=== PATIENT | female | born 1960 | race Caucasian/White ===

== ENCOUNTER 2022-04-08 11:31 | Outpatient (CLI) | payer BC, SELFPAY ==
[2022-04-08 21:34] LABS: Free T4 Free Thyroxine* 0.97 ng/dL (0.70-1.85)
[2022-04-08 21:48] LABS: Thyroid Stimulating Hormone* 0.902 uIU/mL (0.270-4.20)
[2022-04-10 15:07] LABS: Free T3 3.1 pg/mL (2.5-4.3)
[2022-04-10 15:16] LABS: TSH Receptor Antibody < 0.80 IU/L (<=1.75)
== END 2022-04-08 11:32 | disposition home or self-care (01) ==
PROVIDERS: PCP Physician Assistant Medical; Visit Provider Physician Assistant Medical
DX: R53.83 Other fatigue (principal); I10 Essential (primary) hypertension; E83.52 Hypercalcemia; K21.9 Gastro-esophageal reflux disease without esophagitis
CPT/HCPCS: 83520; 84439; 84443; 84481

== ENCOUNTER 2022-06-01 19:00 | Outpatient (CLI) | payer BC, SELFPAY ==
--- NOTE | 2022-06-16 13:07 | W.PM.SLEEP ---
Sleep Study Details Details Interpreting Provider: Marky Enciso MD Date of Sleep Study: 06/01/22 Sleep Study Details: STUDY TYPE:? Home ? BMI:? 26.6 ORDERING PROVIDER:? Sosa INDICATION:? Concerns about sleep apnea ? SLEEP SUMMARY:? 559 monitored minutes RESPIRATORY SUMMARY:? AHI is 5.6, supine AHI 8.8, left lateral HI 3.3, right lateral AHI 4.0 Low oxygen 87 0.5% of study oxygen less than 90% Snoring% 5 PERIODIC LIMB MOVEMENTS OF SLEEP:? Not recorded CARDIAC:? 56-96, mean 70 IMPRESSION:? Mild obstructive sleep apnea with supine position dependency RECOMMENDATION: Treatment options consist of positional therapy with avoidance of supine sleep, AutoSet CPAP at 4-17 versus a dental appliance
== END 2022-06-01 19:01 | disposition home or self-care (01) ==
LOC: SLEEP 06-15 12:35
PROVIDERS: PCP Physician Assistant Medical; Visit Provider Physician Assistant Medical
DX: G47.33 Obstructive sleep apnea (adult) (pediatric) (principal)
CPT/HCPCS: 95806

== ENCOUNTER 2024-06-09 17:34 | Outpatient (REF) | payer OTHER, SELFPAY ==
--- OUTSIDE RECORDS SUMMARY | 2024-06-09 17:39 | XMS_ITS | Clinical Summary ---
Author Organization [facility] Address [address] [place] [address] Care Team Providers Care Station Cleaning Porter Name Role Phone Unassigned, Provider Primary Care Provider Unava ilable Source Comments You are receiving this document as you are listed as the primary care provider,follow-up provider, or the patient has been referred to you for consultation.This is in compliance with the Medicare and[facility] EHR Incentive [facility],which states Providers who transition their patient to another setting of careor provider of care or refers their patient to another provider of care shouldprovide summary care record for each transition of care or referral. [employer] [employer] Allergies Active Allergy Reactions Criticality Noted Date Comments Codeine Nausea,Nausea And Vomiting High 9 Medications Medication Sig Dispensed Refills Start Date End Date Status clonazePAM (KLONOPIN) 0.5 MG tablet Take by mouth. Take 1/2 to 1 tablet by mouth two to three times daily. As needed 09/04/2021 Active metFORMIN (GLUCOPHAGE) 500 MG tablet Take 500 mg by mouth two times a day. 11/29/2021 Active metoprolol succinate (TOPROL XL) 25 MG 24 hour release tablet Take 1 Tablet by mouth daily. 10/09/2021 Active ofloxacin (FLOXIN) 0.3 % ear drop solution Place 3 Drops in ear(s) two times a day. 10/08/2021 Active omeprazole (PRILOSEC) 40 MG capsule Take 40 mg by mouth daily. 09/05/2021 Active prednisoLONE acetate (PRED FORTE) 1 % eye drop suspension 3 Drops two times a day. 10/08/2021 Active sertraline (ZOLOFT) 50 MG tablet Take 50 mg by mouth. 09/12/2021 Active spironolactone (ALDACTONE) 100 MG tablet Take 100 mg by mouth daily. 11/28/2021 Active triamcinolone acetonide (KENALOG) 0.1 % cream Apply topically. 09/03/2021 Active Social History Tobacco Use Types Packs/Day Years Used Date Smoking Tobacco: Never Assessed Sex and Gender Information Value Date Recorded Sex Assigned at Not on file Gender Identity Not on file Sexual Orientation Not on file Last Filed Vital Signs Vital Sign Reading Time Taken Comments Blood Pressure 150/83 12/15/2021 8:48 AM CDT Pulse 91 12/15/2021 8:48 AM CDT Temperature - - Respiratory Rate 16 12/15/2021 8:48 AM CDT Oxygen Saturation 98% 12/15/2021 8:48 AM CDT Inhaled Oxygen Concentration - - Weight - - Height - - Body Mass Index - - Plan of Treatment Health Maintenance Due Date Last Done Comments Colon Cancer Screening Plan Due 1960 Hep C Screening (Preventive Services) 1960 HIV Screening (Preventive Services) 1976 Adult Preventive Visit 1978 Cervical Cancer Screening Due 09/30/2002 09/29/2002 Cholesterol 09/29/2007 09/29/2002 Zoster/Shingles (1 of 2) 2010 Mammogram 09/29/2012 09/29/2011 COVID-19 Vaccine ( season) 2024 01/17/2021, 12/16/2020 Influenza (#1) 2024 08/21/2019, 04/24, 07/24/2005, Additional history exists DTaP/Tdap/Td (4 - Tdap) 01/22/2025 01/23/20 15, 10/20/2006, 10/20/2006 RSV (1 - 1-dose 75+ series) 11/14/2035 HepA Aged Out No longer eligi ble based on patient's age to complete this topic HepB Aged Out No longer eligi ble based on patient's age to complete this topic Hib Aged Out No longer eligi ble based on patient's age to complete this topic IPV (Polio) Aged Out No longer eligi ble based on patient's age to complete this topic Infant RSV Aged Out No longer eligi ble based on patient's age to complete this topic MCV4 Aged Out No longer eligi ble based on patient's age to complete this topic Pneumococcal Aged Out No longer eligi ble based on patient's age to complete this topic Procedures Procedure Name Priority Date/Time Associated Diagnosis Comments ANATOMICAL PATH-C Routine 09/29/2002 2:1 2 PM ENTERTAINMENT USHER LIPID PANEL & DIRECT LDL (IF NEEDED) Routine 09/29/2002 10:03 AM ENTERTAINMENT USHER from Last 3 Months or Most Recently Relevant to Health Maintenance Results * Anatomical Path-C (09/29/2002 2:12 PM ENTERTAINMENT USHER) PAP Smear SEE TEXT No normal range HP CONVERSION Comment: Patient: MIRTA BURROUGHS ? CERVICAL CYTOLOGY REPORT Pathology # ??[id number] ?Date Obtained: ? Date Received: LMP: CLINICAL HIST CONVENTIONAL PAP SMEAR-CERVIX SPECIMEN ADEQUACY: ?? Satisfactory. ENDOCERVICAL CELLS: ??Present. CYTOLOGIC IMPRESSION: Negative for intraepithelial lesion or malignancy. Verified 10/23/02 by: ??TSC ?(electronic signature) 09/29/2002 2:12 PM ENTERTAINMENT USHER Julia Blunt MD LAB_1 HP CONVERSION * Lipid Panel and Direct LDL(If Needed) (09/29/2002 10:03 AM ENTERTAINMENT USHER) Cholesterol/HDL Ratio Screen 2.6 No normal range HP CONVERSION Cholesterol 158 125 - 199 mg/dL HP CONVERSION HDL Cholesterol 60 40 - 60 mg/dL HP CONVERSION Triglycerides 86 0 - 199 mg/dL HP CONVERSION LDL Calculated 81 66 - 129 mg/dL HP CONVERSION Comment: 09/29/2002 10:0 3 AM ENTERTAINMENT USHER Julia Blunt MD LAB_1 HP CONVERSION from Last 3 Months or Most Recently Relevant to Health Maintenance Care Teams Station Cleaning Porter Relationship Specialty Start Date End Date Unassigned, Provider [address] [place] [address] PCP - General 07/31/00
--- OUTSIDE RECORDS SUMMARY | 2024-06-09 17:39 | XMS_ITS | Referral Summary ---
Author Organization [facility] Address [address] [place] [id number] Care Team Providers Care Consulting Actuary Name Role Phone [facility]- Primary Care Provider Corey aKng MD Unavailable [phone] Allergies Active Allergy Reactions Criticality Noted Date Comments Adhesive Tape Rash Low 11/24/2022 Codeine Nausea and Vomiting 08/26/2014 Mold Rash Low 01/13/2024 Medications Medication Sig Dispensed Refills Start Date End Date Status omeprazole (PRILOSEC) [address] capsule TAKE 1 CAPSULE BY MOUTH EVERY DAY BEFORE A MEAL 11/21/2020 Active ciprofloxacin-dexam ethasone (CIPRODEX) 0.3-0.1 % otic suspension as needed 05/28/2020 Active ofloxacin (OCUFLOX) 0.3 % ophthalmic solution 11/11/2020 Active prednisoLONE acetate (PRED FORTE) 1 % ophthalmic suspension 11/11/2020 Active triamcinolone (KENALOG) 0.1 % external cream 11/21/2020 Active amLODIPine (NORVASC) 5 MG tablet Take 5 mg by mouth daily for blood pressure Active metoprolol succinate ER (TOPROL XL) 25 MG 24 hr tablet Take 12.5 mg by mouth daily Active olmesartan (BENICAR) 20 MG tablet Take 20 mg by mouth daily 07/21/2023 Active FINASTERIDE PO Take 2.5 mg by mouth daily Active MAGNESIUM PO Active clonazePAM (KLONOPIN) 0.5 MG tablet Take 0.5 mg by mouth 2 times daily as needed for anxiety Active GARLIC PO Active ESTROGENS CONJUGATED PO Active UNABLE TO FIND Testosterone pellet A ctive Active Problems Problem Noted Date Diagnosed Date Gastroesophageal reflux disease without esophagi tis 12/08/2023 Mixed hyperlipidemia 03/14/2021 SVT (supraventricular tachycardia) 03/14/2021 Multiple renal calculi 10/25/2018 Immunizations Name Administration Dates Next Due TDAP Vaccine (Adacel) 01/22/2015,10/20/2006 Social History Tobacco Use Types Packs/Day Years Used Date Smoking Tobacco: Never Smokeless Tobacco: Never Tobacco Cessation:Counseling Given: Not Answered Alcohol Use Standard Drinks/Week Comments Yes 0 (1 standard drink = 0.6 oz pur e alcohol) occ Adolescent Education Answer Date Record ed Getting School Help Needed Not on file 05/14 Sex and Gender Information Value Date Recorded Sex Assigned at Not on file Gender Identity Not on file Sexual Orientation Not on file Last Filed Vital Signs Vital Sign Reading Time Taken Comments Blood Pressure 94/64 01/26/2024 2:58 PM CDT Pulse 56 01/26/2024 2:58 PM CDT Temperature 36.2 ??C (97.2 ??F) 01/26/2024 2:00 PM CD T Respiratory Rate 16 01/26/2024 2:58 PM CDT Oxygen Saturation 92% 01/26/2024 2:58 PM CDT Inhaled Oxygen Concentration - - Weight 73.5 kg (162 lb 1.6 oz) 01/26/2024 9:37 A M CDT Height 165.1 cm (5' 5) 01/26/2024 9:37 AM CDT Body Mass Index 26.97 01/26/2024 9:37 AM CDT Plan of Treatment Not on file Procedures Procedure Name Priority Date/Time Associated Diagnosis Comments COMPREHENSIVE METABOLIC PANEL STAT 12/08/2023 4:42 AM CDT COLONOSCOPY - HIM SCAN 12:00 AM CDT MA SCREENING BILATERAL W/ GABINO Routine 01/01/2016 2:32 PM CDT Visit for screening mammogram from Last 3 Months or Most Recently Relevant to Health Maintenance Results * (ABNORMAL) Comprehensive metabolic panel (12/08/2023 4:42 AM CDT) Sodium 141 135 - 145 mmol/L 12/08/2023 5:08 AM CDT [facility] Comment:Reference intervals for this test were updated on 05/18/2023 to more accurately reflect our healthy population. There may be differences in the flagging of prior results with similar values performed with this method. Interpretation of those prior results can be made in the context of the updated reference intervals. Potassium 3.9 3.4 - 5.3 mmol/L 12/08/2023 5:08 AM CDT [facility] Carbon Dioxide (CO2) 25 22 - 29 mmol/L 12/08/2023 5:08 AM CDT [facility] Anion Gap 15 7 - 15 mmol/L 12/08/2023 5:08 AM CDT [facility] Urea Nitrogen 13.4 8.0 - 23.0 mg/dL 12/08/2023 5:08 AM CDT [facility] Creatinine 0.83 0.51 - 0.95 mg/dL 12/08/2023 5:08 AM CDT [facility] GFR Estimate 79 >60 mL/min/1. 73m2 12/08/2023 5:08 AM CDT [facility] Calcium 10.3(H) 8.8 - 10.2 mg/dL 12/08/2023 5:08 AM CDT [facility] Chloride 101 98 - 107 mmol/L 12/08/2023 5:08 AM CDT [facility] Glucose 130(H) 70 - 99 mg/dL 12/08/2023 5:08 AM CDT [facility] Alkaline Phosphatase 118 40 - 150 U/L 12/08/2023 5:08 AM CDT [facility] Comment:Reference intervals for this test were updated on 07/06/2023 to more accurately reflect our healthy population. There may be differences in the flagging of prior results with similar values performed with this method. Interpretation of those prior results can be made in the context of the updated reference intervals. AST 26 0 - 45 U/L 12/08/2023 5:08 AM CDT [facility] Comment:Reference intervals for this test were updated on 02/01/2023 to more accurately reflect our healthy population. There may be differences in the flagging of prior results with similar values performed with this method. Interpretation of those prior results can be made in the context of the updated reference intervals. ALT 27 0 - 50 U/L 12/08/2023 5:08 AM CDT [facility] Comment:Reference intervals for this test were updated on 02/01/2023 to more accurately reflect our healthy population. There may be differences in the flagging of prior results with similar values performed with this method. Interpretation of those prior results can be made in the context of the updated reference intervals. Protein Total 8.5(H) 6.4 - 8.3 g/dL 12/08/2023 5:08 AM CDT [facility] Albumin 5.1 3.5 - 5.2 g/dL 12/08/2023 5:08 AM CDT [facility] Bilirubin Total 0.2 <=1.2 mg/dL 12/08/2023 5:08 AM CDT [facility] Blood VENOUS LINE / Unknown Venipuncture / Unknown 12/08/2023 4:42 AM CDT 12/08/2023 4:45 AM CDT Raeann Ramirez DO LAB - BLOOD [facility] Organization Address City/State/ZIP Co de Phone Number LABORATORY [facility] [address] Lab (1st floor, no room number) [place] [address] * Colonoscopy - HIM Scan (11/24/2022 12:00 AM CDT) 11/24/2022 Provider Outside PROCEDURES * MA Screen Bilateral w/Gabino (01/01/2016 2:32 PM CDT) Anatomical Region Laterality Modality Breast Bilateral Mammography Impressions 01/01/2016 2:43 PM CDT IMPRESSION: BI-RADS CATEGORY: 1 - ??NEGATIVE. RECOMMENDED FOLLOW-UP: Annual Mammography Exam results letter mailed to patient. VANESA MATA MD Narrative 01/01/2016 2:43 PM CDT SCREENING MAMMOGRAM, BILATERAL, DIGITAL w/CAD w/TOMOSYNTHESIS - 01/01/2016 2:32 PM. BREAST SYMPTOMS: Patient states that she has an occasional twinge in the left breast. Patient refused diagnostic mammography. COMPARISON: ??12/20/2013, 10/02/2011. BREAST DENSITY: Heterogeneously dense. COMMENTS: No findings of suspicion for malignancy. ?? Small stable appearing cluster of microcalcifications in the anterior outer right breast. Annual screening mammography will be necessary to confirm stability. There is a biopsy marker in the left breast. Procedure Note Vanesa Mata MD - 01/01/2016 SCREENING MAMMOGRAM, BILATERAL, DIGITAL w/CAD w/TOMOSYNTHESIS - 01/01/2016 2:32 PM. BREAST SYMPTOMS: Patient states that she has an occasional twinge in the left breast. Patient refused diagnostic mammography. COMPARISON: 12/20/2013, 10/02/2011. BREAST DENSITY: Heterogeneously dense. COMMENTS: No findings of suspicion for malignancy. Small stable appearing cluster of microcalcifications in the anterior outer right breast. Annual screening mammography will be necessary to confirm stability. There is a biopsy marker in the left breast. IMPRESSION: BI-RADS CATEGORY: 1 - NEGATIVE. RECOMMENDED FOLLOW-UP: Annual Mammography Exam results letter mailed to patient. VANESA MATA MD Zhanna Paulino MD IMG MAMMOGRAPHY ORDERABLES from Last 3 Months or Most Recently Relevant to Health Maintenance Care Teams Consulting Actuary Relationship Specialty Start Date End Date [facility] [address] [place] [address] PCP - General 12/18/20 Corey Kang MD [address] [place] [id number] [place] [id number] Assigned Surgical Provider 01/13/24
--- OUTSIDE RECORDS SUMMARY | 2024-06-09 17:39 | XMS_ITS | Clinical Summary ---
Author Organization [facility] Address [address] [place] [address] Care Team Providers Care Metal Polisher Name Role Phone [facility]- Primary Care Provider Corey Kang MD Unavailable [phone] Allergies Active Allergy Reactions Criticality Noted Date [...] 01/26/2024 9:37 AM CDT Plan of Treatment Health Maintenance Due Date Last Done Comments ADVANCE CARE PLANNING 1960 ANNUAL REVIEW OF HM ORDERS 1960 CT COLONOGRAPHY 1960 FIT 1960 FLEX SIG 1960 LIPID 1960 sDNA (Cologuard) 1960 Pneumococcal Vaccine: Pediatrics (0 to 5 Years) and At-Risk Patients (6 to 64 Years) (1 of 2 - PCV) 1966 HIV SCREENING 11/14/1975 HEPATITIS C SCREENING 1978 ZOSTER IMMUNIZATION (1 of 2) 11/14/1979 RSV VACCINE (1 - Risk 60-74 years 1-dose series) 2020 COVID-19 Vaccine (3 - Moderna risk series) 02/14/2021 01/17/2021, 12/16/2020 PHQ-2 (once per calendar year) 2023 PAP 03/03/2024 03/03/2021, 03/03/2021 MAMMO SCREENING 04/06/2024 04/06/2022, 03/23, 02/12/2021, Additional history exists INFLUENZA VACCINE (#1) 2024 08/21/2019 YEARLY PREVENTIVE VISIT 12/12/2024 12/13/2023, 03/03 DTAP/TDAP/TD IMMUNIZATION (3 - Td or Tdap) 01/22/2025 01/22/2015, 10/20/2006, 10/20/2006 GLUCOSE 12/07/2026 12/08/2023, 02/20, 01/19/2021, Additional history exists COLONOSCOPY 11/25/2027 11/24/2022, 11/24/2022 COLORECTAL CANCER SCREENING 11/25/2027 HPV IMMUNIZATION Aged Out No longer e ligible based on patient's age to complete this topic MENINGITIS IMMUNIZATION Aged Out No l onger eligible based on patient's age to complete this topic RSV MONOCLONAL ANTIBODY Aged Out No l onger eligible based on patient's age to complete this [...] - 145 mmol/L 12/08/2023 5:08 AM CDT LABORATORY Comment:Reference intervals for this test were updated on 05/18/2023 to more accurately reflect our healthy population. There may be differences in the flagging of prior results with similar values performed with this method. Interpretation of those prior results can be made in the context of the updated reference intervals. Potassium 3.9 3.4 - 5.3 mmol/L 12/08/2023 5:08 AM CDT LABORATORY Carbon Dioxide (CO2) 25 22 - 29 mmol/L 12/08/2023 5:08 AM CDT LABORATORY Anion Gap 15 7 - 15 mmol/L 12/08/2023 5:08 AM CDT LABORATORY Urea Nitrogen 13.4 8.0 - 23.0 mg/dL 12/08/2023 5:08 AM CDT LABORATORY Creatinine 0.83 0.51 - 0.95 mg/dL 12/08/2023 5:08 AM CDT LABORATORY GFR Estimate 79 >60 mL/min/1. 73m2 12/08/2023 5:08 AM CDT LABORATORY Calcium 10.3(H) 8.8 - 10.2 mg/dL 12/08/2023 5:08 AM CDT LABORATORY Chloride 101 98 - 107 mmol/L 12/08/2023 5:08 AM CDT LABORATORY Glucose 130(H) 70 - 99 mg/dL 12/08/2023 5:08 AM CDT LABORATORY Alkaline Phosphatase 118 40 - 150 U/L 12/08/2023 5:08 AM CDT LABORATORY Comment:Reference intervals for this test were updated on 07/06/2023 to more accurately reflect our healthy population. There may be differences in the flagging of prior results with similar values performed with this method. Interpretation of those prior results can be made in the context of the updated reference intervals. AST 26 0 - 45 U/L 12/08/2023 5:08 AM CDT LABORATORY Comment:Reference intervals for this test were updated on 02/01/2023 to more accurately reflect our healthy population. There may be differences in the flagging of prior results with similar values performed with this method. Interpretation of those prior results can be made in the context of the updated reference intervals. ALT 27 0 - 50 U/L 12/08/2023 5:08 AM CDT LABORATORY Comment:Reference intervals for this test were [...] Ramirez DO LAB - BLOOD [facility] LABORAT[facility] [address] Lab (1st floor, no room number) [place] [address] * Colonoscopy - HIM [...] Recently Relevant to Health Maintenance Care Teams Metal Polisher Relationship Specialty Start Date End Date [facility]- [address] [place] [address] PCP - General 12/18/20 Corey Kang MD [id number] [place] [id number] Assigned Surgical Provider 01/13/24
--- OUTSIDE RECORDS SUMMARY | 2024-06-09 17:39 | XMS_ITS | Continuity of Care Document ---
Author Organization [facility] Address [address] [address] [place] [address] Phone Care Team Providers Care Box Hinge And Lock Attacher Name Role Phone Kyler Cruz MD, Teodoro Unavailable Unavailabl e Allergies, Adverse Reactions, Alerts Substance Reaction Status Criticality adhesive tape Nausea/Vomiting Active No Informat ion codeine Nausea Active No Information Medications Medication Instructions Dosage Effective Dates (start - stop) Status Comments amlodipine 5 mg tablet take 1 tablet by oral route every day 5 MG - Active lisinopril 10 mg tablet take 1 tablet by oral route every day 10 MG - Active METOPROLOL SUCCINATE (unknown strength) take 1 tablet by oral route every day Not Available - Active FINASTERIDE (unknown strength) take 1 tablet by oral route every day Not Available - Active omeprazole 40 mg capsule,delayed release take 1 capsule by ORAL route every day before a meal 40 MG - Active Procedures Procedure Date Colonoscopy Flex; W/remov Les- 23 Level Iv-surg Path Gross/micro 23 Dilat Esoph-sound/bougie-1/mx 9 Ugi Endo; Dx W/wo Collec Specm 19 Offic/outpt E&m Estab Mod-hi 2 19 Colonoscopy Flex; W/remov Les- 17 Level Iv-surg Path Gross/micro 17 Offic/outpt E&m Estab Mod-hi 2 17 Ugi Endo; W/bx 1/mx Ugi Endo; W/balloon Dilat Esop 17 Level Iv-surg Path Gross/micro 17 Hemorrhoid Banding Hemorrhoidectomy By Simpl Lig 4 Hemorrhoidectomy By Simpl Lig 4 Colonoscopy Flex; W/bx 1/mx Level Iv-surg Path Gross/micro 12 Advance Directives Directive Yes / No Effective Date File Name No Information Encounters Encounter Description Practice Location Reason(s) For Visit Diagnoses Date Provider Providers Copied on Encounter [facility], [address] [address], [place], [place], [id number], [place] tel:[phone] [facility] No Information 4 Kyler Valerio. [address] [facility], [facility] [address], [place], [place], [address] , [place]. tel:[phone] [facility], [address] [address], [place], [id number], [place] tel:[phone] [facility] GI Symptoms or Concerns (chief complaint) Colorectal polyp detected on colonoscopyFamily history of colon cancerEncounter for screening for malignant neoplasm of colonBenign neoplasm of sigmoid colonPersonal history of colonic polypsFamily history of malignant neoplasm of digestive organs 0 3 Allen Pritchett. [address] [facility], [facility] [address], [place], [place], [id number] , [place]. tel:[phone] Saravanan Funez MD. tel:[phone] erring Provider: Referral Self, USE FOR SELF REFERRALS. [facility], [address] [address], [place], [id number], [place] tel:[phone] [facility] No Information 3 Kyler Valerio. [address] [facility], [address], [place], [address] , [place]. tel:[phone] [facility], [address] [address], [place], [address], [place] tel:[phone] [facility] No Information 0 1 Derek Bennett. [address] [facility], [address], [place], [id number] , [place]. tel: [phone] [facility], [address] [address], [place], [id number], [place] tel:[phone] [facility] Diaphragmatic hernia without obstruction or gangreneGastro-es ophageal reflux disease without esophagitisSchatz ki's ring of distal esophagusEsophage al obstructionDiaphr agmatic hernia without obstruction or gangreneGastro-es ophageal reflux disease without esophagitis 9 Deerk Bennett. [address] [facility], [address], [place], [id number] , [place]. tel: [phone] Saravanan Funez MD. [phone] erring Provider: Referral Self, USE FOR SELF REFERRALS. Offic/outpt E&m Estab Mod-hi 2 [facility], [address] [address], [place], [id number], [place] tel:[phone] [facility] GI Symptoms or Concerns (chief complaint) HH (hiatus hernia)Gastroesop hageal reflux disease without esophagitisEsopha geal dysphagia 9 Derek Bennett. [address] [facility], [address], [place], [id number] , [place]. tel: [phone] Saravanan Funez MD. [phone] erring Provider: Referral Self, USE FOR SELF REFERRALS. [facility], [address] [address], [place], [id number], [place] tel:[phone] [facility] No Information 9 Mackenzie James. [address] [facility], [address], [place], [address] , [place]. tel: [phone] [facility], [address] [address], [place], [id number], [place] tel:[phone] [facility] Colorectal polypsInternal hemorrhoidsEncoun ter for screening for malignant neoplasm of colonBenign neoplasm of transverse colonPersonal history of colonic polypsOther hemorrhoids 7 Marcin Sifuentes. [address] [facility], [address], [facility] [place], [id number] , [place]. tel:[phone] Referring Provider: Zhanna Paulino [place] R, [address] [facility], [place], [address]. tel:[phone] Offic/outpt E&m Estab Mod-hi 2 [facility], [address] [address], [place] [facility], [address], [place] tel:[phone] [facility] GI Symptoms or Concerns (chief complaint) HeartburnDietary counseling and surveillanceEleva rita blood-pressure reading, w/o diagnosis of htnHistory of adenomatous polyp of colon 7 Trisha Amezcua. [address] [facility], [facility] [address], [place], [place], [address] , [place]. tel:[phone] Saravanan Funez MD. tel:[phone] erring Provider: Zh[place] R, [address] [facility], [place], [address]. tel:[phone] [facility], [address] [address], [place], [address], [place] tel:[phone] [facility] Hiatal herniaDysphagia, unspecifiedEsopha geal obstructionDiaphr agmatic hernia without obstruction or gangreneEsophagea l obstruction 7 Trisha Amezcua. [address] [facility], [address], [facility] [place], [address] , [place]. [phone] Referring Provider: Zhanna Paulino [place] R, [address] [facility], [place], [address]. tel:[phone] [facility], [address] [address], [place], [id number], [place] tel:[phone] [facility] GI Symptoms or Concerns (chief complaint) Internal Hemorrhoids 0 4 Porfirio Patel. [address] [facility], [facility] [address], [place], [address] , [place]. tel: [phone] Saravanan Funez MD. tel: [phone] erring Provider: [place], [address] [place], [address]. tel:[phone] [facility], [address] [address], [place], [id number], [place] tel:[phone] [facility] Internal Hemorrhoids 4 Porfirio Patel. [address] [facility], [facility] [address], [place], [place], [address] , [place]. tel: [phone] Saravanan Funez MD. tel: [phone] erring Provider: Zhanna [place]ino [place] R, [address] [place], [address]. tel:[phone] [facility], [address] [address], [place], [id number], [place] tel:[phone] [facility] HemorrhoidsIntern al Hemorrhoids 4 Porfirio Patel. [address] [facility], [facility] [address], [place], [id number] , [place]. tel: [phone] Saravanan Funez MD. tel: [phone] erring Provider: [place] R, [address] [place], [address]. tel:[phone] [facility], [address] [address], [place], [address], [place] tel:[phone] [facility] Polyp-intes/rect/ stom-unc BehColon Cancer ScreeningBenign Neoplasm ColonHemorrhoids NosConstipation UnspecifiedColon Cancer ScreeningConstipa tion UnspecifiedHemorr hoids NosBenign Neoplasm Colon Fe- Ben Ndiaye. [address] [facility], [facility] [address], [place], [place], [address] , [place]. tel:[phone] Family History Family Member Type Diagnosis Age At Onset Mother Problem (finding) malignant neoplasm of s kin Sister Problem (finding) Colon polyps Daughter Problem (finding) Alive and well Father Problem (finding) GERD Mother Problem (finding) Asthma Brother Problem (finding) GERD Mother Problem (finding) GERD Sister Problem (finding) Thyroid disorder Mother Problem (finding) Gallbladder disease Son Problem (finding) Alive and well Immunizations Vaccine Date Status Comments SARS-COV-2 (COVID-19) vaccin e, mRNA, spike protein, LNP, preservative free, 100 mcg/0.5mL dose or 50 mcg/0.25mL dose administered Note: [facility] bi -directional interface ; Source: Other Registry SARS-COV-2 (COVID-19) vaccin e, mRNA, spike protein, LNP, preservative free, 100 mcg/0.5mL dose or 50 mcg/0.25mL dose administered Note: [facility] bi -directional interface ; Source: Other Registry Influenza administered Note: [facility] bi-d irectional interface ; Source: Other Registry tetanus toxoid, reduced diphtheria toxoid, and acellular pertussis vaccine, adsorbed administered Note: [facility] b i-directional interface ; Source: Other Registry tetanus toxoid, reduced diphtheria toxoid, and acellular pertussis vaccine, adsorbed administered Note: [facility] b i-directional interface ; Source: Other Registry Influenza, seasonal, injectable administe red Note: [facility] bi- directional interface ; Source: Other Registry Influenza, seasonal, injectable administe red Note: [facility] bi- directional interface ; Source: Other Registry Payers Payer name Insurance type Covered democrat ID Authoriza tion(s) [employer] [facility] [id number] Social History Type Description Quantity Date Captured Comments Alcohol Use Details Unknown Caffeine Use Details Unknown Tobacco Use Status No Information Smoking Status No Information Sex Female Chief Complaint And Reason For Visit No Information Reason For Referral Reason For Referral No Information Plan Of Treatment Date Type Action Status Goal Lifestyle education regardin g diet completed History Of Present Illness Encounter Date Complaint History Of Presjose nt Illness GI Symptoms or Concerns GI Symptoms or Concerns Mirta is seen today in followup. This patient is a 58-year-old woman with complaint of dysphagia.She had been previously seen by Dr. Fuller from our office. She had undergone endoscopy in 2017 with findings of esophageal ring and hiatal hernia. She now states she is having recurrent symptoms of dysphagia, occurs with solids, not with liquids, the longest the food had been caught has been for a minute. It is not associated with emesis.With this, she does have heartburn that may be worse at night, but occurs during the day as well and occurs if she overeats, no associated weight loss. She does feel that she is slightly more short of breath.I note that she does not take anti-inflammatories, no regular medications at night. The only thing she is on is Zantac or Tums p.r.n. She is allergic or intolerant of codeine. The only operations have been a hysterectomy, bunions and ear tubes. Denies any other medical problems. She is not a smoker or drinker. Lives with her GI Symptoms or Concerns This is a 56-year-old female who was previously having problems with dysphagia and heartburn. I did an EGD on her on 10/05/2016. With that, there was a Schatzki's ring identified. This was dilated with a balloon at 18 mm. There was possible eosinophilic esophagitis, and biopsies were obtained. There was a small hiatal hernia. The duodenum looked normal. Biopsies were obtained, which were normal. From the esophagus, there were eosinophils seen distally with a peak count of 30. However, the mid esophagus was normal, no eosinophils. She had been on an H2 gifty. We switched that to Protonix. After the EGD, she has not had any more dysphagia. Her heartburn has been gone on the Protonix.However, she is worried that she has gained weight. She has read online that weight gain can be potentially associated with Protonix. She stopped the Protonix about three days ago. GI Symptoms or Concerns Functional Status Date Functional Assessmen t No Information Instructions Date Instruction Additional Infor edwige Colon Polyps Related to Color ectal polyp detected on colonoscopy Hiatal Hernia Related to Diaph ragmatic hernia without obstruction or gangrene Schatzki's Ring Related to Diaph ragmatic hernia without obstruction or gangrene Colon Cancer Prevention Related to Colorectal polyps Colon Polyps Related to Color ectal polyps Hemorrhoids Related to Color ectal polyps 1. Follow reflux pre cautions (info given today too).2. Call if symptoms recurring. If heartburn, we would try Zantac 2x/day and if needed, a different PPI. Related to Heartburn Gastroesophageal Reflux Disease Related to Heartburn Lifestyle education regarding di et Related to Dietary counseling and surveillance Eosinophilic Esophagitis Related to Hiatal hernia Hiatal Hernia Related to Hiata l hernia Schatzki's Ring Related to Hiata l hernia Assessments Type Assessment Date No Information Patient Care Teams Name Effective Dates (start - stop) Status Members No Information
--- OUTSIDE RECORDS SUMMARY | 2024-06-09 17:39 | XMS_ITS | Encounter Summary ---
Author Organization [facility] Address [address] [place] [address]. [place] [address] Care Team Providers Care Teaching Assistant Name Role Phone Saravanan Dolan MD Primary Care Provide r Zhanna Paulino MD Primary Care Provider + [facility]- Primary Care Provider Corey Kang MD Unavailable [phone] Encounter Details Date Type Department Care Team (Late st Contact Info) Description 06/13/2012 Office Visit-[facility] [address] [place] [address] Carl Ward MD [address] [facility] [address] [place], [place] [address] Social History Tobacco Use Types Packs/Day Years Used Date Smoking Tobacco: Never Assessed Sex and Gender Information Value Date Recorded Sex Assigned at Not on file Gender Identity Not on file Sexual Orientation Not on file documented as of this encounter Progress Notes * Carl Ward MD - 06/15/2012 9:36 AM CDT Progress Note Created by: Carl Ward M.D. DATE: 06/13/2012 MIRTA BURROUGHS DATE OF : 1960 AGE: [age] years old Referring Physician: CECILIA DOLAN Referring Clinic: [facility] RECRUITER CURRENT DIAGNOSES 1. Dyspnea, 786.09 2. - Chest Pain Precordial, 786.51 3. Chest discomfort, 786.59 ALLERGIES MEDICATIONS (prior to changes made today) 1. multivitamin tablet, 1 p.o. daily 2. nitroglycerin 0.4 mg tablet, sublingual, Take as Directed Sublingual 3. progesterone 50 mg/mL Oil, Take as Directed CHIEF COMPLAINTS Chest Discomfort HISTORY OF PRESENT ILLNESS It is a pleasure for me to see this delightful 51-year-old lady at the request of Dr. Cecilia Dolan. She is here for an evaluation of shortness of breath on exertion. This lady exercises on a veryregular basis. She goes for a brisk walk and does occasional weight training. However, her main activity at least during the summer months is bike riding. On the weekends, she rides just 25 miles. She has noticed that over the past few months that she has become more short of breath, especially when climbing hills. She tells me that when she reaches the top of the hill she has to get off of her bike because she is so out of breath. At the same time, she will experience a localized substernal chest discomfort. When she rests, this will disappear after a few minutes. She is not aware of any wheezing. She has no problems when she walks briskly. She has not had similar symptoms when she is at rest. She tells me that she has had a long history of heartburn. She thinks that these symptoms may be due to heartburn. However, her friends think otherwise and have also advised her to seek medical advice. She does not smoke or abuse alcohol or drugs. She had gestational diabetes. She is not hypertensiveby history, but I do notice a blood pressure of 152/80. When she saw Dr. Dolan, her blood pressure was 142/80. She does not monitor her own blood pressure. Her family history is negative for premature atherosclerotic disease, though I note that her mother has had stents. She is 84 years old. Of lucinda jim, her older sister has exercise induced asthma. Her cardiovascular system examination was completely normal as was her resting EKG. PAST HISTORY Past Medical Illnesses: gestational diabetes, no history of hypertension or hyperlipidemia. 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 INTEGUMENTARY denies any change in hair or nails, rashes, or skin lesions. EYES denies diplopia, history of glaucoma or visual field defects. EARS, NOSE, THROAT, MOUTH denies any hearing loss, epistaxis, hoarseness or difficulty speaking. RESPIRATORY dyspnea with exertion CARDIOVASCULAR negative for palpitations, chest pain, orthopnea, PND, peripheral edema, syncope or claudication. ABDOMINAL denies ulcer disease, hematochezia or melena. MUSCULOSKELETAL denies any history of arthritic symptoms or back problems. NEUROLOGICAL denies any history of recurrent strokes, headaches, TIA, or seizure disorder. PSYCHIATRIC denies any history of depression, substance abuse or change in cognitive functions. ENDOCRINE denies any history of thyroid disease or diabetes mellitus. HEMATOLOGICAL/IMMUNOLOGIC denies any food allergies, seasonal allergies, bleeding disorders. PHYSICAL EXAMINATION VITAL SIGNS: Blood Pressure: 152/80Sitting, Right arm, regular cuff Pulse- 84.00/min. Weight- 135.70 lbs. Height- 65 BMI Measurement: 22 CONSTITUTIONAL cooperative, alert and oriented,well developed, well nourished, in no acute distress. SKIN warm and dry to touch, no apparent skin lesions, or masses noted. HEAD normocephalic, atraumatic EYES Pupils equal and round, conjunctivae and lids unremarkable, sclera white, no xanthalasma ENT no pallor or cyanosis, dentition good NECK carotid pulses are full and equal bilaterally, JVP normal, no carotid bruit, no thyromegaly CHEST normal symmetry, no tenderness to palpation, normal respiratory excursion, no intercostal retraction, no use of accessory muscles, clear to auscultation and percussion. CARDIAC regular rhythm, S1 normal, S2 normal, No S3 or S4, Apical impulse not displaced, no murmurs, gallops or rubs detected. ABDOMEN abdomen soft, bowel sounds normoactive, no masses, no hepatosplenomegaly, non- tender, no bruits PERIPHERAL PULSES pulses full and equal in all extremities, no bruits auscultated. EXTREMITIES & BACK no deformities, clubbing, cyanosis, erythema or edema observed. There are no spinal abnormalities noted. Normal muscle strength and tone. NEUROLOGICAL no gross motor deficits noted, affect appropriate, oriented to time, person and place. MEDICATIONS UPDATED/STARTED TODAY: multivitamin tablet, 1 p.o. daily, #0 (Zero) nitroglycerin 0.4 mg tablet, sublingual, Take as Directed Sublingual, #30 (Thirty) progesterone 50 mg/mL Oil, Take as Directed, #0 (Zero) MEDICATIONS REFILLED/STOPPED TODAY: magnesium 100 mg capsule 1 p.o. daily #0 (Zero) Patient Terminated, Vitamin D3 1,000 unit tablet 1 p.o. daily #0 (Zero) Patient Terminated and Wellbutrin XL 300 mg tablet extended release 24 hr 1 p.o. daily #0 (Zero) Patient Terminated IMPRESSION/PLAN: This is a delightful lady who has exertional chest discomfort and shortness of breath. However, the amount of exertion needed to provoke these symptoms appears to be high. Thus, I dothink that she would be a good candidate for stress testing. Though she does have a lack of cardiacrisk factors, it is not inconceivable that she would have coronary artery disease. Her risk is inter mediate. If the stress test is normal, then I think that exercise induced asthma would be an alternative diagnosis. I do notice her blood pressure being high, which qualifies her for Stage I systolic hypertension. Ihave asked her to do some home blood pressure monitoring before we embark on any drug therapy. I have given her a prescription for sublingual nitroglycerin and instructed her on its use. I look forward to seeing her again in a few weeks' time for follow up. TODAYS ORDERS 1. Treadmill Stress Echo 3 days, ON MEDS, 2. Return Visit 6 weeks Carl Ward M.D. documented in this encounter Plan of Treatment Not on file documented as of this encounter Visit Diagnoses Not on filedocumented in this encounter Care Teams Teaching Assistant Relationship Specialty Start Date End Date Saravanan Dolan MD [address] [facility] [address] [place] [address] PCP - General user experience designer 09/30/11 06/15/12 Zhanna Paulino MD [facility] [address] [place] [address] PCP - General 06/16/12 12/17/20 [facility]- [address] [place] [address] PCP - General 12/18/20 Corey Kang MD [address] [id number] [place] [address] Assigned Surgical Provider 01/13/24 documented as of this encounter
--- OUTSIDE RECORDS SUMMARY | 2024-06-09 17:39 | XMS_ITS | Encounter Summary ---
Author Organization [facility] Address [address] [place] [address] Care Team Providers Care Plant Engineer Name Role Phone [facility]- Primary Care Provider Corey Kang MD Unavailable [phone] Encounter Details Date Type Department Care Team (Late st Contact Info) Description 12/16/2023 MyC Medical Advice [facility] [address] [place] [id number] Renée Dolan Social History Tobacco Use Types Packs/Day Years Used Date Smoking Tobacco: Never Smokeless Tobacco: Never Alcohol Use Standard Drinks/Week Comments Yes 0 (1 standard drink = 0.6 oz pur e alcohol) Adolescent Education Answer Date Record ed Getting School Help Needed Not on file 05/14 Sex and Gender Information Value Date Recorded Sex Assigned at Not on file Gender Identity Not on file Sexual Orientation Not on file documented as of this encounter Plan of Treatment Not on file documented as of this encounter Visit Diagnoses Not on filedocumented in this encounter Care Teams Plant Engineer Relationship Specialty Start Date End Date [facility]- [address] [place] [address] PCP - General 12/18/20 Corey Kang MD [id number] [place] [id number] Assigned Surgical Provider 01/13/24 documented as of this encounter
--- OUTSIDE RECORDS SUMMARY | 2024-06-09 17:39 | XMS_ITS | Clinical Summary ---
Author Organization [facility] Address [place], [place] [address] Care Team Providers Care Composition Molder Name Role Phone Unavailable Primary Care Provider Unavailabl e Allergies Active Allergy Reactions Criticality Noted Date Comments Codeine Nausea And Vomiting Low 08/07/2009 Medications Medication Sig Dispensed Refills Start Date End Date Status metFORMIN (GLUCOPHAGE) 500 mg tablet Take 1 Tablet by mouth 2 times daily. 11/21/2020 Active triamcinolone (ARISTOCORT; KENALOG) 0.1 % cream APPLY TO AFFECTED AREA TWICE A DAY 11/21/2020 Active prednisoLONE acetate 1% ophthalmic (ECONOPRED PLUS, PRED FORTE, OMNIPRED) suspension INSTILL 3 DROP INTO RIGHT EAR TWICE A DAY FOR 5 DAYS 11/11/2020 Active sertraline (ZOLOFT) 50 mg tabletIndications:An xiety,Recurrent major depression in remission (HC) Take 1 Tablet (50 mg) by mouth every morning. 90 Tablet 3 09/12/2021 Active metoprolol succinate (TOPROL XL) 25 mg Sustained-Release tabletIndications:SV T (supraventricular tachycardia) (HC) TAKE 1 TABLET BY MOUTH EVERY DAY 90 Tablet 1 10/09/2021 Active clonazePAM (KLONOPIN) 0.5 mg tabletIndications:Si tuational anxiety TAKE 1/2 TO 1 TABLET BY MOUTH TWO TO THREE TIMES DAILY. NEEDED 15 Tablet 12/24/2021 Active Active Problems Problem Noted Date Diagnosed Date SOB (shortness of breath) 03/14/2021 Mixed hyperlipidemia 03/14/2021 SVT (supraventricular tachycardia) 03/14/2021 Multiple renal calculi 10/25/2018 Anxiety 04/19/2017 Overview (04/19/2017): 03/2017 patient did testing for formal evaluation of ADHD. Testing did not confirm ADHD; did endorse anxiety and stress. History of colon polyps 03/03/2017 Overview (03/03/2017): 02/2017-2 5 mm tubular adenomas; repeat 2021 Abnormal Pap smear of vagina 01/20/2017 ASCUS of cervix with negative high risk HPV 08/2016 Overview (02/16/2017): 12/2016 ASCUS/HPV negative vaginal pap Plan: Routine screening. Insomnia 09/09/2015 Post menopausal syndrome 09/09/2015 Chronic dysfunction of right eustachian tube Non healing left heel wound 02/28/2015 Psoriasis 06/26/2013 Recurrent major depression in remission 01/13/20 11 LGSIL Pap smear of vagina 08/23/2010 Overview (02/17/2017): 2010 LSIL. 2016 ASCUS; negative high risk HPV testing. Resolved Problems Problem Noted Date Diagnosed Date Resolved Date DM (diabetes mellitus), gest ational, antepartum 09/26/2010 01/09/2011 Overview (09/26/2010): She had it with the first and last pregnanies Immunizations Name Administration Dates Next Due Influenza, IIV3 (Age >=3 years) 05/20/2011,07/24,07/09/2003 Influenza, IIV4 (=>6mos) MDV 08/21/2019 Td (Age >=7 Years) 10/20/2006 Tdap 01/22/2015,10/20/2006 Family History Medical History Relation Name Comments Diabetes Brother 1 Glen Psychiatric illness Brother 2 Curt anxiety Diabetes Father Hypertension Father Cancer-breast Maternal Aunt Heart Disease Maternal Grandfather Heart Disease Maternal Grandmother Heart Disease Mother 3 stents Hypertension Mother Diabetes Sister Valentina Hypertension Sister Valentina Thyroid Disease Sister Valentina Relation Name Status Comments Brother 1 Glen Alive Brother 2 Curt Alive Father Alive Maternal Aunt Maternal Grandfather Maternal Grandmother Mother Alive Paternal Grandfather Paternal Grandmother Sister Valentina Alive Social History Tobacco Use Types Packs/Day Years Used Date Smoking Tobacco: Never Smokeless Tobacco: Never Tobacco Cessation:Counseling Given: Yes Alcohol Use Standard Drinks/Week Comments Yes 1.7 (1 standard drink = 0.6 oz p ure alcohol) occ. PHQ-2 Answer Date Recorded PHQ-2 TOTAL SCORE 2 09/12/2021 Social Connections Answer Date Recorded Frequency of Communication with Friends and Fami ly Not on file 08/23/2021 Financial Resource Strain Answer Date R ecorded Difficulty of Paying Living Expenses Not on file 08/23/2021 Difficulty of Paying Living Expenses Not on file 08/23/2021 Sex and Gender Information Value Date Recorded Sex Assigned at Not on file Gender Identity Not on file Sexual Orientation Not on file Obstetrics History Para Term AB IAB SAB Ectopic Multiple Livin g Live Births 4 4 4 4 Date Outcome GA Total Labor Labor//3rd Weight Sex Type Anes PTL Hilda A1 A5 Name Clin Term Term Term Term Last Filed Vital Signs Vital Sign Reading Time Taken Comments Blood Pressure 112/70 09/12/2021 9:05 AM [facility] [employer] Pulse 80 10/25/2018 11:49 AM [employer] [employer] Temperature 37 ??C (98.6 ??F) 10/25/2018 11:49 AM [facility] [employer] Respiratory Rate 16 10/25/2018 11:49 AM [employer] [employer] Oxygen Saturation 98% 10/25/2018 11:49 AM SUR[employer] [employer] RA Inhaled Oxygen Concentration - - Weight 76.2 kg (168 lb) 09/12/2021 9:05 AM [employer] [employer] Height 164.5 cm (5' 4.75) 09/12/2021 9:05 AM CS T Body Mass Index 28.17 09/12/2021 9:05 AM SUR[employer]OR [employer] Plan of Treatment Health Maintenance Due Date Last Done Comments HIV for age 15-65 11/14/1975 Hepatitis C screening for age 18-79 1978 Zoster (shingles) series for age 50+ (1 of 2) 2010 Mammogram for age 45-75 10/21/2021 10/22/19 21 (Completed outside of [facility]), 11/03/2018, 10/25/2018, Additional history exists Lipids for age 45-75 01/21/2022 01/21/2017, 07/24/20 09 BMI (ht and wt on same day) for age 18+ 09/12/2022 09/12/2021, 07/12/2017, 01/20/2017, Additional history exists Depression screening for age 12+ 09/12/2022 09/12/2021, 04/16/2017, 01/20/2017 COVID-19 vaccine series ( season) 2024 01/17/2021, 12/16/2020 Influenza for age 50-64 04/23/2024 08/21/20 19, 05/20/2011, 07/24/2005, Additional history exists Tetanus booster 01/22/2025 01/22/2015, 09/24, 10/20/2006 Colonoscopy through age 75 11/25/202711/24, 03/01/2017, 10/16/2011 Tdap Completed 01/22/2015, 10/20/2006 Pneumococcal series for age 6-64 Aged Out No longer eligible based on patient's age to complete this topic Procedures Procedure Name Priority Date/Time Associated Diagnosis Comments SCAN-COLONOSCOPY 11/24/2022 7:30 AM CDT XR MAMMO GABINO BILAT ADDL VIEWS Routine 11/03/2018 9:40 AM CDT Abnormal mammogram LIPID PANEL W REFLEX MEASURED LDL Routine 01/21/2017 8:57 AM CDT Screening for cholesterol level from Last 3 Months or Most Recently Relevant to Health Maintenance Results * SCAN-COLONOSCOPY (11/24/2022 7:30 AM CDT) Narrative Procedure Note Yarely Villa MD - 11/24/2022 6:46 AM CDT [facility] [address], [address], [place] [address] Patient Name: Mirta Burroughs Gender: Female Exam Date: 11/24/2022 Visit Number: [id number] Age: 62 Years Date of : 1960 Attending MD: Yarely Villa MD Medical Record#: [id number] Procedure: Colonoscopy Indications: Previous adenomatous polyp(s) Family history of colon cancer in patient's multiple relatives. Agediagnosed: 60s. Referring MD: Referral Self Primary MD: Siobhan Swan PAC Medications: Admitting Medications: 0.9% Normal Saline at [facility] Intra Procedure Medications: Patient received monitored anesthesia care. Complications: No immediate complications Procedure: An examination of the heart and lungs was performed and found to be withinacceptable limits. . The patient was therefore deemed a reasonablecandidate for endoscopy and sedation. The risks and benefits of the procedure were explained to the patient.After obtaining informed consent, the patient received monitoredanesthesia care and I passed the scope without difficulty via the rectum to the ileum. The appendiceal orificeand ic valve were identified. The scope was retroflexed during theexamination The quality of the prep was good (Tc/Gat Split). This was a complete examination throughout the entire colon. Findings: Polyp location: sigmoid. Quantity: 1. Size: 5 mm. Polyp shape:sessile. Maneuver: polypectomy was performed with a cold snare. Removal: complete. Retrieval: complete. Bleeding: none. Remainder of the exam is normal. Impression: Colorectal polyp detected on colonoscopy Family history of colon cancer Preliminary Plan: Repeat colonoscopy in 5 years for polyp surveillance Pathology Results: A: COLON, SIGMOID, POLYP: 1. Tubular adenoma 2. Negative for high grade dysplasia 3. Per the colonoscopy report: a. Polyp size: 5 mm b. Resection: Complete c. Retrieval: Complete MICROSCOPIC A: Performed Electronically signed by: Jin Castle MD Interpreted at [facility], [address] [place] [address] Orders Instruction(s)/Education: Instruction/Education Timeframe Assessment Colon Polyps K63.5 Final Plan: Repeat colonoscopy in 5 years for Polyp surveillance. We will attempt to contact you at appropriate intervals via [place] mail. Wemay not be able to find you or contact you at that time, therefore youshould know that the responsibility for following our recommendation restswith you. If you don't hear from us at the time your procedure is due,please contact our office to schedule an appointment. If your contactinformation should change, please contact our office so that we can updateyour record. _Electronically signed by: Yarely Villa MD 11/24/2022 cc: Siobhan Swan PAC cc: Saravanan Funez MD Yarely Villa MD OTHER * XR MAMMO GABINO BILAT ADDL VIEWS (11/03/2018 9:40 AM CDT) Anatomical Region Laterality Modality BREASTS, Breast Left, Breast Right Mammography 11/03/2018 9:40 AM CDT Narrative 11/03/2018 3:11 PM CDT [facility] XR MAMMO GABINO BILAT ADDL VIEWS, US BREAST BILATERAL LIMITED 11/03/2018 9:40 AM INDICATION: Abnormal Mammogram. COMPARISON: 10/25/2018, 01/01/2016, 12/20/2013, 03/24/2011, 03/21/2010. MAMMOGRAPHIC FINDINGS: Bilateral full-field digital diagnostic mammograms performed. The breasts are heterogeneously dense, which may obscure masses. Breast tomosynthesis was used in interpretation. The asymmetry in the inferior slightly medial left breast at the anterior depth partially disperses on the additional diagnostic views and is thought to represent superimposition of breast tissue, summation artifact. Further evaluation with targeted ultrasound is recommended. The asymmetry in the inferior slightly lateral right breast at the anterior depth also partially disperses on the additional views. Further evaluation with targeted ultrasound is recommended. ULTRASOUND FINDINGS: Targeted ultrasound of the inferior right breast was performed at the 8:00 position, 4 cm from the nipple, there is a small cyst measuring 6 x 4 x 4 mm. The cyst is thought to correlate with the mammographic abnormality. No suspicious finding. Targeted ultrasound of the inferior central left breast extending to the medial and lateral aspects was performed by both the technologist and radiologist. Machine Set Up Technician images at the 6:00 position, 3 cm from the nipple, demonstrate normal fibroglandular breast tissue. No suspicious finding. IMPRESSION: ACR BI-RADS Category 2: Benign. Results given to the patient who should resume annual screening mammography. Procedure Note Elgethun, Stephanie Julianne, MD - 11/03/2018 [facility] XR MAMMO GABINO BILAT ADDL VIEWS, US BREAST BILATERAL LIMITED 11/03/2018 9:40 AM INDICATION: Abnormal Mammogram. COMPARISON: 10/25/2018, 01/01/2016, 12/20/2013, 03/24/2011, 03/21/2010. MAMMOGRAPHIC FINDINGS: Bilateral full-field digital diagnosticmammograms performed. The breasts are heterogeneously dense, which may obscuremasses. Breast tomosynthesis was used in interpretation. The asymmetry in theinferior slightly medial left breast at the anterior depth partially disperses onthe additional diagnostic views and is thought to represent superimpositionof breast tissue, summation artifact. Further evaluation with targetedultrasound is recommended. The asymmetry in the inferior slightly lateral rightbreast at the anterior depth also partially disperses on the additional views.Further evaluation with targeted ultrasound is recommended. ULTRASOUND FINDINGS: Targeted ultrasound of the inferior right breastwas performed at the 8:00 position, 4 cm from the nipple, there is a smallcyst measuring 6 x 4 x 4 mm. The cyst is thought to correlate with themammographic abnormality. No suspicious finding. Targeted ultrasound of the inferiorcentral left breast extending to the medial and lateral aspects was performed byboth the technologist and radiologist. Machine Set Up Technician images at the 6:00position, 3 cm from the nipple, demonstrate normal fibroglandular breast tissue. No suspicious finding. IMPRESSION: ACR BI-RADS Category 2: Benign. Results given to the patient who should resume annual screeningmammography. Zhanna Paulino MD MAMMO * (ABNORMAL) LIPID PANEL W REFLEX MEASURED LDL (01/21/2017 8:57 AM CDT) CHOLESTEROL,TOTAL 200(H) 100 - 199 mg/dL 01/21/2017 2:51 PM CDT [facility] TRIGLYCERIDES 121 <150 mg/dL 01/21/2017 2:51 PM CDT [facility] HDL CHOLESTEROL 56 >40 mg/dL 7 2:51 PM CDT [facility] NON-HDL CHOLESTEROL 144 <145 mg/dl 01/21/2017 2:51 PM CDT [facility] CHOL/HDL RATIO 3.57 <4.50 01/21/2017 2:51 PM CDT [facility] LDL CHOLESTEROL 120 <=130 mg/dL 01/21/2017 2:51 PM CDT [facility] PATIENT STATUS FASTING 01/21/2017 2:51 PM CDT [facility] Blood BLOOD SPECIMEN / Unknown Venipuncture / Unknown 01/21/2017 8:57 AM CDT 01/21/2017 8:57 AM CDT [facility] [address] [place] [address], from Last 3 Months or Most Recently Relevant to Health Maintenance Advance Directives * Full Code (Latest Code Status on File) Date Activated Date Inactivated Comments 08/07/2009 6:30 AM 08/07/2009 12:20 PM
--- OUTSIDE RECORDS SUMMARY | 2024-06-09 17:39 | XMS_ITS | Encounter Summary ---
Author Organization [facility] Address [address] [place] [id number] Care Team Providers Care Engagement Quality Consultant Name Role Phone [facility]- Primary Care Provider Corey Kang MD Unavailable [phone] Encounter Details Date Type Department Care Team (Late st Contact Info) Description 01/06/2024 MyC Medical Advice [facility] [place] [address] [place] [id number] Jerri Chan RN Social History Tobacco Use Types Packs/Day Years [...] on filedocumented in this encounter Care Teams Engagement Quality Consultant Relationship Specialty Start Date End Date [facility]- [address] [place] [address] PCP - General 12/18/20 Corey Kang MD [id number] [place] [address] Assigned Surgical Provider 01/13/24 documented as of this encounter
[2024-06-09 19:26] LABS: Vitamin D 25 Hydroxy* 81 ng/mL (30-80)
[2024-06-09 21:28] LABS: Ferritin* 39.3 ng/mL (11.1-264.0)
== END 2024-06-09 17:35 | disposition home or self-care (01) ==
LOC: NPINS 17:34
PROVIDERS: PCP Physician Assistant Medical; Visit Provider Physician Assistant
DX: L63.8 Other alopecia areata (principal); L65.0 Telogen effluvium; L57.0 Actinic keratosis
CPT/HCPCS: 82306; 82728